=== PATIENT | male | born 1955 | race Hispanic/Latino ===

== ENCOUNTER 2018-03-14 11:39 | Emergency (ER) | payer MEDICAID, OTHER ==
[2018-03-14 11:44] VITALS: TEMP 98.2; BMI 21.6
--- NOTE | 2018-03-14 12:09 | ED PDOC ---
Arrival/HPI - General Chief Complaint: Anxiety Time Seen by Provider: 03/14/18 11:53 Historian: Patient - History of Present Illness Time/Duration: < week (2-3 days) Symptom Onset: Gradual Symptom Course: Unchanged, Intermittent Associated Symptoms (Text): 62yo male, otherwise well, comes to ER reporting "skipped heartbeats" x 3 days. Patient states he has had such before but states this instance is the worst, causing him concern and prompting the visit. Patient states he took Aspirin 81mg for 2 days with no relief of symptoms; he also states he stopped caffeine intake x 2 days. Otherwise, he denies any fever, chills, chest pain, cough, shortness of breath, abdominal pain, nausea, vomiting or diarrhea. Patient denies any weakness, numbness, dizziness, or lightheadedness. He also denies any recent sick contacts or recent long distance travel. Of note, patient states he does not visit doctor's often and has not followed up in "years". PMD: None Past Medical History - Provider Review Nursing Documentation Reviewed: Yes - Travel History Have you recently traveled outside [place] w/in the past 3 mons?: No - Infectious Disease Hx of Infectious Diseases: None - Past Medical History Past Medical History: No Previous - Psychiatric Hx Substance Use: No - Past Surgical History Past Surgical History: No Previous - Surgical History Hx Tonsillectomy: Yes - Suicidal Assessment Feels Threatened In Home Enviroment: No Family/Social History - Physician Review Nursing Documentation Reviewed: Yes Family/Social History: No Known Family HX Smoking Status: Light Smoker < 10 Cigarettes Daily Hx Alcohol Use: Yes (Beer) Frequency of alcohol use: Daily (1 beer a day) Hx Substance Use: No Hx Substance Use Treatment: No Allergies/Home Meds Allergies/Adverse Reactions: Allergies No Known Allergies Allergy (Verified 03/14/18 11:45) Home Medications: Home Meds Medication Instructions Recorded Confirmed Aspirin [Aspirin Chewable] 81 mg PO DAILY 03/14/18 03/14/18 Review of Systems - Physician Review All systems were reviewed & negative as marked: Yes - Review of Systems Constitutional: absent: Fevers Respiratory: absent: SOB Cardiovascular: Other (skipped heartbeats). absent: Chest Pain Gastrointestinal: absent: Abdominal Pain, Diarrhea, Nausea, Vomiting Neurological: absent: Dizziness Physical Exam Vital Signs Temp Pulse Resp BP Pulse Ox 03/14/18 11:44 98.2 F 100 H 20 164/97 H 96 Temperature: Afebrile Blood Pressure: Normal Pulse: Regular Respiratory Rate: Normal Appearance: Positive for: Well-Appearing, Non-Toxic, Comfortable Pain Distress: None Mental Status: Positive for: Alert and Oriented X 3 - Systems Exam Head: Present: Atraumatic, Normocephalic Pupils: Present: PERRL Extroacular Muscles: Present: EOMI Neck: Present: Normal Range of Motion Respiratory/Chest: Present: Clear to Auscultation, Good Air Exchange, Other (prolonged epiratory phase). No: Respiratory Distress, Accessory Muscle Use Cardiovascular: Present: Regular Rate and Rhythm, Normal S1, S2. No: Murmurs Abdomen: Present: Normal Bowel Sounds. No: Tenderness, Distention, Peritoneal Signs Upper Extremity: Present: Normal Inspection. No: Cyanosis, Edema Lower Extremity: Present: Normal Inspection. No: Edema Neurological: Present: GCS=15, CN II-XII Intact, Speech Normal Skin: Present: Warm, Dry, Normal Color. No: Rashes Medical Decision Making ED Course and Treatment: Impression: 62yo male, comes with "skipping heartbeat" Plan: -- Labs -- EKG -- CXR -- Reassess and disposition Prior Visits: Notes and results from previous visits were reviewed. Patient was last seen in the emergency department on 12/15/14 for urinary symptoms and was discharged home Progress Notes: 03/14/18 12:17 EKG: Normal sinus rhythm @ 93 BPM Left axis deviation Normal intervals No ST elevations or depressions Nonspecific T-wave changes 03/14/18 14:39 Labs reviewed and show no clinically significant findings. Chest X-ray as reviewed by me shows COPD; no CHF, infiltrates, or diseases noted. 03/14/18 14:50 Pt re-eval: States feeling much better. Denies any cp, sob, n/v or any other complaints. Understands and agrees to immediately return to the ER if having cp, sob, n/v, diaphoresis, dizziness or any other concerning, worsening, new or continued sxs. Otherwise, states will f/u with pcp in 1-2 days. - RAD Interpretation Narrative RAD Interpretations (Text): 03/14/18 15:56 Chest X-ray FINDINGS: LUNGS: Hyperinflation, manifestations of COPD. No active pulmonary disease. PLEURA: No significant pleural effusion identified. No pneumothorax apparent. CARDIOVASCULAR: No aortic atherosclerotic calcification present OSSEOUS STRUCTURES: No significant abnormalities. VISUALIZED UPPER ABDOMEN: Normal. OTHER FINDINGS: None. IMPRESSION: No active disease. - EKG Interpretation EKG Interpretation (Text): Normal sinus rhythm @ 93 BPM Left axis deviation Normal intervals No ST elevations or depressions Nonspecific T-wave changes - Scribe Statement The provider has reviewed the documentation as recorded by the Mary Alonzo Provider Scribe Attestation: All medical record entries made by the Scribe were at my direction and personally dictated by me. I have reviewed the chart and agree that the record accurately reflects my personal performance of the history, physical exam, medical decision making, and the department course for this patient. I have also personally directed, reviewed, and agree with the discharge instructions and disposition. Disposition/Present on Arrival - Present on Arrival Any Indicators Present on Arrival: No History of DVT/PE: No History of Uncontrolled Diabetes: No Urinary Catheter: No History of Decub. Ulcer: No History Surgical Site Infection Following: None - Disposition Have Diagnosis and Disposition been Completed?: Yes Diagnosis: Palpitations Disposition: HOME/ ROUTINE Disposition Time: 14:43 Patient Problems: Current Active Problems Problem Status Onset Palpitations Acute Condition: STABLE Discharge Instructions (ExitCare): Palpitations (DC) Additional Instructions: WE DISCUSSED, RETURN TO THE ER IMMEDIATELY IF YOU HAVE CHEST PAIN, TROUBLE BREATHING, SWEATING, NAUSEA/VOMITING, DIZZINESS, OR ANY OTHER CONCERNING, WORSENING, NEW OR CONTINUED SYMPTOMS. OTHERWISE, FOLLOW UP WITH YOUR DOCTOR AND PSYCHIATRIC NURSE PRACTITIONER IN 1-2 DAYS. CALL [facility] FOR APPOINTMENTS Referrals: [facility] [Outside] - Follow up with primary Starr Lynch MD [Medical Doctor] - Follow up with primary Forms: [employer] (Tajik)
[2018-03-14 12:47] LABS: BASO # 0.04 K/mm3 (0.0-2.0); BASO % 0.6 % (0.0-3.0); EOS # 0.1 (0.0-0.7); EOS % 1.1 % (1.5-5.0); GRAN # 4.93 (1.4-6.5); GRAN % 70.7 % (50.0-68.0); HEMOGLOBIN 15.8 g/dL (14.0-18.0); LYMPH # 1.4 (1.2-3.4); LYMPH % 19.6 % (22.0-35.0); MEAN CELL VOLUME 92.9 fl (80.0-105.0); MEAN CORPUSCULAR HEMOGLOBIN 32.2 pg (25.0-35.0); MEAN CORPUSCULAR HGB CONC 34.6 g/dl (31.0-37.0); MEAN PLATELET VOLUME 9.5 fl (7.0-11.0); MONO # 0.6 (0.1-0.6); RBC 4.91 10^6/uL (3.5-6.1); RED CELL DISTRIBUTION WIDTH 12.2 % (11.5-14.5)
[2018-03-14 12:59] LABS: ALB/GLOB RATIO 1.4 (1.1-1.8); ALBUMIN 4.6 g/dL (3.0-4.8); ALT/SGPT 43 U/L (7-56); AST/SGOT 43 U/L (17-59); BLOOD UREA NITROGEN 13 mg/dL (7-21); CALCIUM 9.4 mg/dL (8.4-10.5); GFR NON-AFRICAN AMERICAN > 60
[2018-03-14 13:10] LABS: TROPONIN I < 0.01 ng/mL
[2018-03-14 13:49] VITALS: RESP 17; O2SAT 98
--- NOTE | 2018-03-14 15:11 | CARD ---
APPROVED REPORT Date of service: 03/14/2018 EKG Measurement Heart [id number] <Conclusion> Sinus rhythm Left axis deviation/LAHB R>S in V1, RVH vs posterior HI PRWP STTW changes
[2018-03-14 15:24] VITALS: BP 145/84; PULSE 88
--- NOTE | 2018-03-14 15:45 | RAD ---
Date of service: 03/14/2018 HISTORY: palpitations COMPARISON: No prior. TECHNIQUE: Chest PA and lateral FINDINGS: LUNGS: Hyperinflation, manifestations of COPD. No active pulmonary disease. PLEURA: No significant pleural effusion identified. No pneumothorax apparent. CARDIOVASCULAR: No aortic atherosclerotic calcification present OSSEOUS STRUCTURES: No significant abnormalities. VISUALIZED UPPER ABDOMEN: Normal. OTHER FINDINGS: None. IMPRESSION: No active disease.
== END 2018-03-14 15:24 | disposition home or self-care (01) ==
LOC: ED 11:39
DX: R00.2 Palpitations (principal)